=== PATIENT | female | born 1960 | race Caucasian/White ===

== ENCOUNTER 2016-07-22 14:21 | Emergency (ER) | payer MEDICAID, MEDICARE ==
[~2016-07-22] VITALS: Ht 170.2 cm; Wt 70.3 kg
[~2016-07-22 14:21] MED LIST: /ACETCOD2T PO; ATEN25TA PO; IBUP600T26 PO; LORA2TA OR; VICO5TAB PO
[2016-07-22] MEDS ORDERED: LEXA1TAB2 PO (14:41)
[2016-07-22] MEDS ORDERED: CLON1TAB PO (14:41)
[2016-07-22] MEDS ORDERED: NS 1,000 ML IV SCH (15:29)
[2016-07-22] MEDS ORDERED: NS 1,000 ML IV ONE (15:30)
[2016-07-22] MEDS ORDERED: fentaNYL 100 MCG/2 ML INJECTION (J3010) IV ONE (15:45)
[2016-07-22] MEDS ORDERED: GASTROGRAFIN SOLUTION 30ML (Q9963) PO ONE ×2 (16:00)
[2016-07-22 16:08] LABS: BASO % 0.5 % (0.0-1.0); EOS # 0.1 K/mm3 (0.0-0.50); EOS % 1.1 % (0.0-3.0); LARGE UNSTAINED CELL # 0.1 K/mm3 (0.0-0.4); LARGE UNSTAINED CELL % 1.6 % (0.0-4.0); LYMPH # 2.3 K/mm3 (1.5-4.5); LYMPH % 26.8 % (24.0-44.0); MEAN CORPUSCULAR HEMOGLOBIN 30.9 pg (27.0-33.0); MEAN CORPUSCULAR HGB CONC 32.9 g/dl (32.0-36.5); MONO # 0.6 K/mm3 (0.0-0.8); MONO % 7.3 % (0.0-5.0); NEUTROPHILS # 5.1 K/mm3 (1.8-7.7); NEUTROPHILS % 62.8 % (36.0-66.0); PLATELET COUNT, AUTOMATED 255 k/mm3 (150-450); RED CELL DISTRIBUTION WIDTH 12.3 % (11.5-14.5); WHITE BLOOD COUNT 8.1 K/mm3 (4.0-10.0)
[2016-07-22 16:24] LABS: ALBUMIN/GLOBULIN RATIO 1.33 (1.00-1.93); ALKALINE PHOSPHATASE 96 U/L (45-117); ALT/SGPT 88 U/L (12-78); ANION GAP 8 MEQ/L (8-16); AST/SGOT 72 U/L (15-37); BILIRUBIN,DIRECT 0.1 MG/DL (0.0-0.2); BILIRUBIN,TOTAL 0.4 MG/DL (0.2-1.0); BLOOD UREA NITROGEN 4 MG/DL (7-18); CARBON DIOXIDE LEVEL 29 MEQ/L (21-32); CHLORIDE LEVEL 104 MEQ/L (98-107); CREATININE FOR GFR 0.86 MG/DL (0.55-1.02); GLOMERULAR FILTRATION RATE > 60.0 (>51); GLUCOSE, FASTING 95 MG/DL (70-105); POTASSIUM SERUM 3.5 MEQ/L (3.5-5.1); SODIUM LEVEL 141 MEQ/L (136-145)
[2016-07-22] MEDS ORDERED: ISOVUE-370 76% 100ML VIAL (Q9967) As Ordered ONE (17:13)
--- NOTE | 2016-07-22 17:45 | REP ---
Clinical: Abdominal pain and hematochezia. Comparison: 08/04/2012. Technique: Axial contrast enhanced images from the lung bases to the pubic symphysis using oral and 100 ml Isovue 370 intravenous contrast material with coronal and sagittal re-formations. Findings: Lung bases are clear. Visualized heart and pericardium normal. Fatty infiltration to the liver noted without focal hepatic lesion. Spleen, pancreas, gallbladder, bilateral adrenal glands and kidneys are normal the enteric system is without obstruction or acute inflammatory process. Colonic and predominantly sigmoid diverticulosis noted without obvious acute diverticulitis. Pelvis demonstrates normal bladder and evidence for prior hysterectomy. No ascites. No free air. No adenopathy. Vasculature normal. Surrounding musculoskeletal structures intact. Impression: Fatty infiltration to the liver. Sigmoid diverticulosis without acute diverticulitis. No acute intra-abdominal or pelvic pathology appreciated. Signed by Abelardo Harley MD 07/22/2016 05:36 P
[2016-07-22 17:53] VITALS: BP 139/71
== END 2016-07-22 18:11 | disposition home or self-care (01) ==
LOC: M ED 15:21
DX: K57.30 Diverticulosis of large intestine without perforation or abscess without bleeding (principal); K76.0 Fatty (change of) liver, not elsewhere classified; I10 Essential (primary) hypertension; K52.9 Noninfective gastroenteritis and colitis, unspecified; Z80.9 Family history of malignant neoplasm, unspecified; Z80.0 Family history of malignant neoplasm of digestive organs; Z88.1 Allergy status to other antibiotic agents; Z88.5 Allergy status to narcotic agent; Z88.8 Allergy status to other drugs, medicaments and biological substances
CPT/HCPCS: 36415; 74177; 80048; 80076; 81001; 83605; 83690; 85025; 87507; 96374; 99283; J3010; Q9963; Q9967

== ENCOUNTER → 2018-05-14 | Outpatient (CLI) | payer MEDICARE ==
[~2018-05-14] MED LIST changes: +CLON1TAB8 PO; +LEXA1TAB2 PO
--- NOTE | 2018-05-14 17:03 | REP ---
MRI bilateral shoulder without contrast: History: Impingement syndrome. No comparison radiographs. Technique: Axial, oblique coronal and oblique sagittal imaging planes are obtained bilaterally. T1 and T2-weighted scans were included with and without fat saturation. Left shoulder MRI findings: There is subcortical cyst formation in the superolateral humeral head. This is a finding which has been correlated with impingement. The largest of these subcortical cysts measures 5 mm. Cortical and medullary bone signal intensity are otherwise normal. Glenohumeral and acromioclavicular joints are normally aligned. There is minimal hypertrophy at the AC joint. There is mild inferolateral spurring of the acromion process. A subacromial subdeltoid bursal effusion is seen although this is small. There is tendonitis tendinosis change with swelling and increased signal intensity in the supraspinatus tendon on oblique coronal T1 and T2-weighted scans. No focal cuff tear is seen. There is some subtle T2 hyperintensity at the distal footprint of the supraspinatus tendon on oblique coronal T2-weighted scans in a linear partial-thickness fashion. No full-thickness tear is seen. There is fraying and irregularity of the posterior labral cartilage on axial T2-weighted scans. No other articular cartilage abnormality is seen. Subscapularis, biceps, and infraspinatus tendons appear intact. Impression: Tendonitis tendinosis change in the supraspinatus tendon with a partial thickness distal footprint T2 hyperintensity. No full-thickness tear is seen. Subacromial subdeltoid bursal effusion seen. Minimal AC joint hypertrophy and acromion process spurring. Subcortical cyst formation in the humeral head. Fraying and irregularity of the posterior labral cartilage. Right shoulder MRI findings: There is subcortical cyst formation in the superolateral humeral head on the right side as well. This is even more extensive. There is moderate osteoarthritic hypertrophy at the AC joint. Subcortical cyst formation is seen in the distal clavicle which shows spurring. There is inferolateral acromion process spurring which is more prominent. Subacromial subdeltoid bursal effusion is seen. There is tendinosis tendonitis change in the distal supraspinatus tendon with similar linear partial thickness T2 hyperintensity in the distal tendon at its insertion. No full-thickness cuff tear is seen. No labral cartilage disruption is seen. The infraspinatus and biceps tendons are unremarkable. The subscapularis tendon is somewhat thickened consistent with tendinosis. Impression: AC joint osteoarthritis. Acromion process and AC joint spurring. Small bursal effusion. Tendinosis change in the distal supraspinatus. No full-thickness tear. Partial thickness distal supraspinatus attachment lesion. Subcortical cyst formation in the humeral head. Subscapularis tendinosis changes. Electronically Signed by Anurag Hurley MD 05/14/2018 08:03 P
== END ==
LOC: M RAD 12:12
PROVIDERS: ATTEND Orthopaedic Surgery Sports Medicine
DX: M75.41 Impingement syndrome of right shoulder (principal); M75.42 Impingement syndrome of left shoulder

== ENCOUNTER → 2018-05-18 | Outpatient (CLI) | payer MEDICARE ==
[~2018-05-18] MED LIST changes: +CONRAY-43 43% 50ML VIAL (Q9960) As Ordered ONE; +LIDOCAINE 1% MDV 20ML VIAL As Ordered ONE; +TRIAMCINOLONE ACETONIDE SUSP 40 MG/ML VIAL (J3301) As Ordered ONE
--- NOTE | 2018-05-18 17:35 | REP ---
LEFT HIP INJECTION The procedure was performed under the direct supervision of Dr. Hurley. The benefits and risks including but not limited to pain infection bleeding and anaphylaxis were explained to the patient and informed consent was obtained. The left femoral neck was localized using fluoroscopic guidance. The skin was prepped and draped in a sterile fashion. 1% lidocaine was used as a local anesthetic. Using fluoroscopic guidance a 22-gauge spinal needle was inserted and advanced to the femoral neck. 0.5 ml of Conray 43 was injected to verify placement. 6 ml of a solution containing 4 ml of 1% lidocaine and 2 ml of Kenalog 40 mg injected. The needle was then removed. The patient tolerated the procedure well and there were no immediate complications. 0.1 minutes of fluoroscopy time was utilized for this procedure. Reviewed by ANAHI Arenas 05/18/2018 03:15 P Electronically Signed by Anurag Hurley MD 05/18/2018 05:25 P
== END ==
LOC: M RADPRO 12:42
PROVIDERS: ATTEND Orthopaedic Surgery Sports Medicine
DX: M16.12 Unilateral primary osteoarthritis, left hip (principal)
CPT/HCPCS: 20611; 77002; J3301; Q9960

== ENCOUNTER → 2018-06-04 | Outpatient (CLI) | payer OTHER ==
[~2018-06-04] MED LIST changes: -CONRAY-43 43% 50ML VIAL (Q9960) As Ordered ONE; -LIDOCAINE 1% MDV 20ML VIAL As Ordered ONE; -TRIAMCINOLONE ACETONIDE SUSP 40 MG/ML VIAL (J3301) As Ordered ONE
[2018-06-04 17:15] LABS: RUBELLA IgG QUALITATIVE IMMUNE (IMMUNE)
[2018-06-08 01:34] LABS: MUMPS VIRUS IgG ANTIBODY 81.1 AU/mL (Immune >10.9)
== END ==
LOC: M WUC 12:41
PROVIDERS: ATTEND Physician Assistant
DX: Z02.1 Encounter for pre-employment examination (principal)

== ENCOUNTER → 2020-03-05 | Outpatient (CLI) | payer MEDICAID, MEDICARE, SELFPAY ==
[~2020-03-05] MED LIST changes: -/ACETCOD2T PO; +ACET1TAB15 PO
--- NOTE | 2020-03-06 13:49 | ECHO ---
DATE OF PROCEDURE: 03/05/2020 Age: 59 Gender: Female Height: 170 cm Weight: 70 kg REFERRING PHYSICIAN: Dr. Block INDICATION: Pericarditis. MEASUREMENTS: IVS 1.1 cm LV 3.9 cm LVPW 0.7 cm LA 2.2 cm Aorta 2.7 cm RV 3.3 IVC 1.5 cm Mitral E wave velocity 48 Mitral A wave velocity 74 E prime septal 4.9 E prime lateral 5.4 FINDINGS: This study is of fair technical quality. Underlying sinus rhythm. Left ventricle is normal size and overall preserved systolic function with estimated left ventricular ejection fraction (LVEF) approximately 60%. I do not appreciate any distinct wall motion abnormality based on somewhat limited view. Right ventricle is also normal size and systolic function. Both atria appear grossly normal. Aortic valve is minimally sclerotic, but has three cusps and preserved mobility. There are mild degenerative abnormalities of the mitral valve, but mobility of leaflets is preserved. Tricuspid valve appears normal. Pulmonic valve was not well seen. Small noncompressive pericardial effusion is noted principally adjacent to ventricle apex and right ventricle free wall. Inferior vena cava is normal size. Aortic root and aortic arch appear normal. Doppler interrogation reveals no aortic stenosis and trace insufficiency, trace mitral insufficiency, and trace tricuspid insufficiency. Calculated pulmonary artery pressure is within normal limits. Mitral inflow pattern and tissue Doppler imaging of the mitral annulus revealed grade 1 diastolic dysfunction. CONCLUSIONS: 1. Study is of fair technical quality, underlying sinus rhythm. 2. Normal left ventricular (LV) size with preserved left ventricular (LV) systolic function and grade 1 diastolic dysfunction. 3. No significant valvular disease. 4. Small noncompressive pericardial effusion principally adjacent to left ventricle apex, right ventricle free wall, and right atrium. No signs of cardiac compression. 5. Likely normal central venous pressure and normal pulmonary artery pressure. COMMENTS: Study is consistent with clinical diagnosis of pericarditis. Relatively near term follow-up depending on clinical course is recommended. [facility]
== END ==
LOC: M CARPUL 12:19
PROVIDERS: ATTEND Internal Medicine
DX: I31.9 Disease of pericardium, unspecified (principal)